=== PATIENT | male | born 1985 | race Two or more races ===

== ENCOUNTER 2019-01-17 06:28 | Day surgery (SDC) | payer OTHER ==
[~2019-01-17 06:28] MED LIST: TENCON TABLET1 TAB PO
== END 2019-01-17 12:15 | disposition home or self-care (01) ==
LOC: CIR.AMB 06:28
DX: D17.1 Benign lipomatous neoplasm of skin and subcutaneous tissue of trunk (principal)

== ENCOUNTER 2022-10-06 06:20 | Day surgery (SDC) | payer OTHER ==
[~2022-10-06] VITALS: Ht 175.3 cm; Wt 69.4 kg
== END 2022-10-06 12:40 | disposition home or self-care (01) ==
LOC: CIR.AMB 06:20
PROVIDERS: ATTEND Specialist
DX: D17.1 Benign lipomatous neoplasm of skin and subcutaneous tissue of trunk (principal); Z20.822 Contact with and (suspected) exposure to COVID-19

== ENCOUNTER 2022-12-21 13:10 | Emergency (ER) | payer OTHER ==
[~2022-12-21] VITALS: Ht 175.3 cm; Wt 67.1 kg
== END 2022-12-21 18:09 | disposition home or self-care (01) ==
LOC: ER 13:10
DX: M79.672 Pain in left foot (principal); M79.671 Pain in right foot; W20.8XXA Other cause of strike by thrown, projected or falling object, initial encounter; Y93.89 Activity, other specified; Y92.89 Other specified places as the place of occurrence of the external cause; Y99.8 Other external cause status

== ENCOUNTER 2023-08-10 19:58 | Emergency (ER) | payer OTHER ==
[~2023-08-10] VITALS: Ht 175.3 cm; Wt 70.8 kg
== END 2023-08-10 22:49 | disposition home or self-care (01) ==
LOC: ER 19:58
DX: M62.830 Muscle spasm of back (principal)